=== PATIENT | male | born 1970 | race Caucasian/White ===

== ENCOUNTER 2018-08-15 06:50 | Day surgery (SDC) ==
[2018-08-15] MEDS: BETADINE OPTH PREP OP PRN ×2 (07:15→08:17)
[2018-08-15] MEDS: TETRACAINE 0.5% UNIT-DOSE OP PRN ×2 (07:15→08:17)
[2018-08-15] MEDS: CYCLOGYL 2% OPTH OP PRN ×3 (07:16→07:26)
[2018-08-15] MEDS ORDERED: BRIMONIDINE TARTRATE 0.2% OPTH SOL OP PRN (07:20)
[2018-08-15] MEDS ORDERED: DEX-MOXI-KETOR OPTH INJ 1/0.5/0.4 MG/ML IO ONE (07:20)
[2018-08-15] MEDS ORDERED: LIDOCAINE 1%/PHENYLEPHRINE 1.5% BSS (SURGERY) INTRAOCULA ONE (07:20)
[2018-08-15] MEDS ORDERED: LIDOCAINE 1% 20 ML MDV ID STA (07:20)
[2018-08-15] MEDS ORDERED: ZOFRAN 4 MG/2 ML IVP ONE (07:20)
[2018-08-15] MEDS ORDERED: BSS WITH EPINEPHRINE OP ONE (07:20)
[2018-08-15 07:28] VITALS: TEMP 97.8
[2018-08-15] MEDS ORDERED: ZOFRAN 4 MG/2 ML ONE (08:15)
[2018-08-15] MEDS ORDERED: SUBLIMAZE ONE (08:15)
[2018-08-15] MEDS ORDERED: VERSED ONE (08:15)
[2018-08-15 13:10] VITALS: BP 103/55
== END 2018-08-15 09:05 | disposition home or self-care (01) ==
LOC: SURG 06:50
PROVIDERS: ATTEND Ophthalmology
DX: H52.12 Myopia, left eye (principal)